=== PATIENT | female | born 1990 | race Caucasian/White ===

== ENCOUNTER 2018-05-04 13:58 | Observation (INO) ==
--- NOTE | 2018-05-04 14:34 | Emergency Department Note ---
Disposition Clinical Impression: Small bowel obstruction Abdominal pain Qualifiers: Abdominal location: epigastric Qualified Code(s): R10.13 - Epigastric pain Disposition: Admitted As Inpatient Condition: Undetermined Instructions: Abdominal Pain (ED) Referrals: NONE,PCP [Primary Care Provider] - Forms: ED Satisfaction Letter, Work/School Release Time of Disposition: 17:45 (Dr Best Surgeon agreed with our plan and Dr Mullen accepted her ) Abdominal Pain HPI - General Chief Complaint: ED Abdominal Pain Stated Complaint: Abdominal, n/v/d, sore throat, ear pain Source: patient Nursing Notes Reviewed: Yes Vital Signs Reviewed: Yes - History of Present Illness HPI Narrative: Patient is a pleasant 27 yo F with past medical history significant for pancreatitis and HTN who is presenting to [facility] Emergency Room with a chief complaint off acute onset of epigastric pain in the pst few days. Pain has been progressive and she states that she has Hx of pancreatitis. She denies any ETOH ingestion. Patient denies any fever, chills or night sweats. Pt also denies any eye pain or visual disturbances. There is no sore throat, nasal drainages or facial congestion. There is no chest pain, palpitations or racing heart. Pt also denies any shortness of breath, cough or chest congestion. There is no diarrhea. There is no urgency, frequency or dysuria. There is no muskulo-skeletal pain, arthralgia or back pain. Patient also denies any rash, edema or pruritus. There is no neurological manifestations, no headache, no vertigo or weakness. The patient also denies any anxiety, depression, hallucinations and has no homicidal or suicidal ideations. There is no polyuria, polydipsia or recent weight change. There is no easy bruising or bleeding. Review of other systems is otherwise negative except above. Pt Subjective Complaint: abdominal pain Onset (ago): hour(s) Consistency: intermittent Location: periumbilical, epigastric Pain Severity: moderate, severe Pain Scale: 8 Quality: stabbing - Related Data Home Medications Medication Instructions Recorded Confirmed cloNIDine HCl [CloNIDine HCl] 0.1 mg PO TID 05/04/18 05/04/18 Allergies Allergy/AdvReac Type Severity Reaction Status Date / Time Penicillins AdvReac Hives Verified 05/04/18 14:00 All systems ED: reviewed and negative except as stated. Review of Systems: As Per HPI Constitutional: Denies: fever, chills, weakness Eyes: Denies: eye pain, eye discharge ENT ED: Denies: ear pain, throat pain Cardiovascular: Denies: chest pain, palpitations Respiratory: Denies: cough, dyspnea Gastrointestinal: Reports: abdominal pain, nausea, vomiting. Denies: diarrhea Genitourinary: Denies: urgency, dysuria, frequency Musculoskeletal: Denies: back pain, neck pain Abdominal Pain PMH - Past Medical History Medical history: Reports: hypertension, other Female Surgical History: Reports: other Psychiatric history: Reports: anxiety, depression - Social History Smoking status: Current every day smoker Alcohol use: Reports: none Drug use: Reports: marijuana Physical Exam - General Limitations: no limitations General appearance: alert, in no apparent distress - Head Head exam: atraumatic, normocephalic, normal inspection - Eye Eye exam: Present: normal appearance, PERRL, EOMI - Expanded Eye Exam Pupils: Left: reactive - ENT ENT exam: normal exam, normal oropharynx, mucous membranes moist - Expanded ENT Exam External ear exam: Present: normal external inspection Mouth exam: Present: normal external inspection Teeth exam: Present: normal inspection Throat exam: Present: normal inspection - Neck Neck exam: Present: normal inspection, full ROM, trachea midline - Chest Chest inspection: Present: normal inspection, symmetric chest wall rise - Respiratory Respiratory exam: Present: normal lung sounds bilaterally - Cardiovascular Cardiovascular exam: Present: regular rate, normal rhythm, normal heart sounds - Abdominal Exam Abdominal exam: Present: soft, tenderness, normal bowel sounds. Absent: Non- Tender, distention, guarding, rebound, rigidity - Extremities Exam Extremities exam: Present: normal inspection, full ROM. Absent: tenderness, pedal edema - Expanded Upper Extremity Exam Shoulder exam: Present: normal inspection, full ROM Arm exam: Present: normal inspection, full ROM Elbow exam: Present: normal inspection, full ROM Forearm/Wrist exam: Present: normal inspection, full ROM Hand exam: Present: normal inspection, full ROM Vascular exam: Normal: capillary refill, radial pulse - Expanded Lower Extremity Exam Hip/Pelvis exam: Present: normal inspection, full ROM Upper leg exam: Present: normal inspection, full ROM Knee exam: Present: normal inspection, full ROM Lower leg exam: Present: normal inspection, full ROM Ankle exam: Present: normal inspection, full ROM Foot/toe exam: Present: normal inspection, full ROM Neurovascular/Tendon exam: Absent: motor deficit, sensory deficit, tendon deficit - Back Exam Back exam: Present: normal inspection, full ROM. Absent: tenderness - Neurological Exam Neurological exam: Present: alert, oriented X3 - Expanded Neurological Exam Patient oriented to: Present: person, place, time Coma Scale Eye Opening: Spontaneous Coma Scale Motor Response: Obeys Commands Coma Scale Verbal Response: Oriented Coma Scale Total: 15 - Psychiatric Psychiatric exam: Present: normal affect, normal mood - Skin Skin exam: Present: warm, dry, intact, normal color Course Vital Signs Temperature 97.6 F 05/04/18 14:01 Pulse Rate 83 05/04/18 14:01 Respiratory Rate 16 05/04/18 14:01 Blood Pressure 115/74 05/04/18 14:01 O2 Sat by Pulse Oximetry 97 05/04/18 14:01 Temperature 97.6 F 05/04/18 14:01 Pulse Rate 78 05/04/18 17:02 Respiratory Rate 16 05/04/18 17:02 Blood Pressure 108/62 05/04/18 17:02 O2 Sat by Pulse Oximetry 98 05/04/18 17:02 Oxygen Delivery Oxygen Delivery Room Air Abdominal Pain - MDM Narrative Medical decision making narrative: DC with Dr Best Surgeon and he advised to rest her bowel NPP, IV hydration and he is available should we need him over the weekend. Dr Mullen accepted the pt - Differential Diagnosis Differential Diagnosis: Likely: abdominal pain non-specific, acute appendicitis , constipation, diverticulitis, diverticulosis, pancreatitis - Medical Records Medical records reviewed: Yes I reviewed the patient's medical records. - Lab Data Lab results reviewed: Yes I reviewed the patient's lab results. Result diagrams: 05/04/18 16:20 05/04/18 15:45 Lab Results 05/04/18 05/04/18 05/04/18 Range/Units 15:45 15:45 16:20 WBC 6.1 (4.3-11.1) K/mcL RBC 4.43 (3.82-4.97) M/mcL Hgb 12.5 (11.5-15.4) g/dL Hct 38.5 (35.3-44.9) % MCV 86.9 (83.0-100.0) fL MCH 28.2 (28.0-33.3) pg MCHC 32.5 (31.6-35.5) g/dL RDW 14.7 H (11.5-14.5) % Plt Count 298 (140-400) K/mcL MPV 10.6 (9.4-12.4) fL Seg Neutrophils % 54.0 % Lymphocytes % 34.0 % Monocytes % 4.0 % Eosinophils % 2.0 % Basophils % 6.0 % Neutrophils # 3.3 (1.6-8.9) K/mcL Lymphocytes # 2.1 (0.6-4.6) K/mcL Monocytes # 0.2 (0.0-1.3) K/mcL Eosinophils # 0.1 (0.0-0.6) K/mcL Basophils # 0.4 H (0.0-0.2) K/mcL Toxic Granulation Present A (Not Present) Toxic Vacuolation Present A (Not Present) Platelet Estimate Normal (Normal) Clumped Platelets Few A (Not Present) Anisocytosis 1+ A (Not Present) Sodium 134 L (136-145) mEq/L Potassium 4.8 (3.5-5.1) mEq/L Chloride 103 (98-107) mEq/L Carbon Dioxide 23 (23-29) mEq/L BUN 11 (6-20) mg/dL Creatinine 0.73 (0.60-1.20) mg/dL Est GFR ( Amer) > 60 (> 60) Est GFR (Non-Af Amer) > 60 (> 60) BUN/Creatinine Ratio 15 (6-26) Glucose 118 H (70-105) mg/dL Calculated Osmolality 278 L (280-300) Calcium 8.9 (8.6-10.3) mg/dL Amylase 29 (29-103) Units/L Lipase 47 (11-82) Units/L Serum , Qual (Negative) 05/04/18 Range/Units 16:20 WBC (4.3-11.1) K/mcL RBC (3.82-4.97) M/mcL Hgb (11.5-15.4) g/dL Hct (35.3-44.9) % MCV (83.0-100.0) fL MCH (28.0-33.3) pg MCHC (31.6-35.5) g/dL RDW (11.5-14.5) % Plt Count (140-400) K/mcL MPV (9.4-12.4) fL Seg Neutrophils % % Lymphocytes % % Monocytes % % Eosinophils % % Basophils % % Neutrophils # (1.6-8.9) K/mcL Lymphocytes # (0.6-4.6) K/mcL Monocytes # (0.0-1.3) K/mcL Eosinophils # (0.0-0.6) K/mcL Basophils # (0.0-0.2) K/mcL Toxic Granulation (Not Present) Toxic Vacuolation (Not Present) Platelet Estimate (Normal) Clumped Platelets (Not Present) Anisocytosis (Not Present) Sodium (136-145) mEq/L Potassium (3.5-5.1) mEq/L Chloride (98-107) mEq/L Carbon Dioxide (23-29) mEq/L BUN (6-20) mg/dL Creatinine (0.60-1.20) mg/dL Est GFR ( Amer) (> 60) Est GFR (Non-Af Amer) (> 60) BUN/Creatinine Ratio (6-26) Glucose (70-105) mg/dL Calculated Osmolality (280-300) Calcium (8.6-10.3) mg/dL Amylase (29-103) Units/L Lipase (11-82) Units/L Serum , Qual Negative (Negative) - Radiology Data Radiology results reviewed: Yes I reviewed the patient's radiology results.
[2018-05-04] MEDS ORDERED: 0.9 % Sodium Chloride 1,000 ML IVC ONE (14:40)
[2018-05-04] MEDS ORDERED: Ondansetron 4 MG/2 ML VIAL IVP ONE (14:42)
[2018-05-04] MEDS ORDERED: Ondansetron ODT 4 MG TAB.RAPDIS SL ONE (15:26)
[2018-05-04 16:08] LABS: Amylase 29 Units/L (29-103); Lipase 47 Units/L (11-82)
[2018-05-04 16:10] LABS: BUN/Creatinine Ratio 15 (6-26); Blood Urea Nitrogen 11 mg/dL (6-20); Calcium 8.9 mg/dL (8.6-10.3); Carbon Dioxide 23 mEq/L (23-29); Chloride 103 mEq/L (98-107); Glucose 118 mg/dL (70-105); Osmolality,Calculated 278 (280-300); Potassium 4.8 mEq/L (3.5-5.1); Sodium 134 mEq/L (136-145); eGFR For Non-African Americans > 60 (> 60)
[2018-05-04 16:26] LABS: Eosinophils # 0.1 K/mcL (0.0-0.6); Hematocrit 38.5 % (35.3-44.9); Hemoglobin 12.5 g/dL (11.5-15.4); Mean Corpuscular HGB Conc 32.5 g/dL (31.6-35.5); Mean Corpuscular Hemoglobin 28.2 pg (28.0-33.3); Mean Corpuscular Volume 86.9 fL (83.0-100.0); Mean Platelet Volume 10.6 fL (9.4-12.4); Platelet Count 298 K/mcL (140-400); Red Blood Count 4.43 M/mcL (3.82-4.97); Red Cell Distribution Width 14.7 % (11.5-14.5)
[2018-05-04 16:56] LABS: Anisocytosis 1+ (Not Present); Basophils # 0.4 K/mcL (0.0-0.2); Lymphocytes # 2.1 K/mcL (0.6-4.6); Monocytes # 0.2 K/mcL (0.0-1.3); Neutrophils # 3.3 K/mcL (1.6-8.9); Platelet Clumps Few (Not Present); Platelet Estimate Normal (Normal); Toxic Granulation Present (Not Present); Toxic Vacuolation Present (Not Present)
[2018-05-04] MEDS ORDERED: MetroNIDAZOLE 500 MG/100 ML 500 MG/100 ML BAG IVPB ONE (17:51)
[2018-05-04] MEDS ORDERED: Naloxone 0.4 MG/ML INJ IVP PRN ×2 (18:03→19:00)
[2018-05-04] MEDS ORDERED: 0.9 % Sodium Chloride 1,000 ML IVC SCH (18:15)
[2018-05-04] MEDS ORDERED: *HR* HYDROmorphone 2 MG/ML SYRINGE IVP PRN (19:42)
[2018-05-04] MEDS: 0.9 % Sodium Chloride 1,000 ML IVC SCH (19:58)
[2018-05-04] MEDS: cloNIDine HCl 0.1 MG TABLET PO SCH (20:55)
[2018-05-04] MEDS ORDERED: *HR* Promethazine 25 MG/ML VIAL IV PRN (21:12)
[2018-05-04] MEDS: Ondansetron 4 MG/2 ML VIAL IVP PRN (22:13)
[2018-05-05] MEDS: Ondansetron 4 MG/2 ML VIAL IVP PRN ×2 (02:29→07:55)
[2018-05-05] MEDS: Ketorolac 30 MG/ML VIAL IVP PRN (02:52)
[2018-05-05] MEDS: 0.9 % Sodium Chloride 1,000 ML IVC SCH ×4 (04:07→16:16)
[2018-05-05] MEDS: cloNIDine HCl 0.1 MG TABLET PO SCH ×3 (09:39→20:55)
[2018-05-05] MEDS: *HR* HYDROcodone/Acet 5/325 mg TABLET PO PRN ×3 (13:38→23:22)
--- NOTE | 2018-05-05 14:40 | Internal Med History&Physical ---
Date of Encounter: 05/05/18 Time of Encounter: 14:10 Assessment and Plan (1) Abdominal pain Current visit: Yes Status: Acute Suspect gastroenteritis and/or hepatitis. Continue IV fluids, analgesics, and anti-emetics. Qualifiers: Abdominal location: epigastric Qualified Code(s): R10.13 - Epigastric pain (2) COPD (chronic obstructive pulmonary disease) Current visit: Yes Status: Chronic By history. PFTs have not been performed to verify. Qualifiers: COPD type: unspecified COPD Qualified Code(s): J44.9 - Chronic obstructive pulmonary disease, unspecified (3) Lupus Current visit: Yes Status: Chronic By history. Possible clinical features include facial papules and possible hepatitis. Will order LFTs and serology. Qualifiers: Lupus erythematosus form: unspecified Qualified Code(s): L93.0 - Discoid lupus erythematosus (4) Hepatitis C Current visit: Yes Status: Chronic Order hepatitis profile to further evaluate. Qualifiers: Viral hepatitis chronicity: chronic Hepatic coma status: without hepatic coma Qualified Code(s): B18.2 - Chronic viral hepatitis C (5) Weight loss Current visit: Yes Status: Chronic Check TSH (6) Hypertension Current visit: Yes Status: Chronic Blood pressure acceptable at this time off medication. Reported weight loss perhaps contributed to improvement. Continue to monitor. Qualifiers: Hypertension type: essential hypertension Qualified Code(s): I10 - Essential (primary) hypertension Internal Medicine - H&P: HPI Chief complaint: Vomiting Admitted From: Emergency Dept Plans for Post Hospital Care: Home History of present illness: Ms. Cedeno is a 27 year old female who came to emergency room stating she had vomited over 20 times since onset the evening of April 29. She had mid abdominal discomfort that seemed radiate to her back. She did not note hematemesis. She had occasional feelings of feeling warm or chilling. She denies diarrhea. She felt she was having another episode of acute pancreatitis so came to emergency room. Workup showed no evidence of pancreatitis but the CT scan showed fluid filled distended small bowel loops. She was admitted to [facility] floor for ongoing care needs. She reports she has had "14 episodes" of acute pancreatitis. 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 She denies alcohol use. 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 She has a diagnoses of hepatitis C but has not been treated. She states she was exposed to an individual with active hepatitis A within the past few months but reports she has received vaccines for hepatitis A and hepatitis B. She denies other disorders of her liver gallbladder or exocrine pancreas. Past Med Surg Social Fam HX - Past Medical History Medical history: hypertension, other Additional medical history: Pancreatitis Psychiatric history: anxiety, depression - Past Surgical History Additional surgical history: Carpel tunnel - Social History Smoking Status: Current every day smoker Packs per day: 1 Smokeless Tobacco Status: No Alcohol use: none Drug use: marijuana - Family History Mother Living Status: Hx Family Respiratory Disorders: Yes (Lung cancer) Internal Medicine - H&P: Meds cloNIDine HCl [CloNIDine HCl] 0.1 mg PO TID 05/04/18 [History] 3 Allergy/AdvReac Type Severity Reaction Status Date / Time Penicillins AdvReac Hives Verified 05/04/18 14:00 All Systems PM: A 10-system review of systems was performed and is negative for pertinent findings except as documented above in the HPI. Review of systems: Gen.: She states her weight has decreased from approximately 180 pounds to present weight of approximately 120 pounds in the past year, unintentionally. Cardiovascular: She has history of hypertension but denies NE heart failure angina DVT or pulmonary embolus. She has been prescribed clonidine in the past but states she has not taken it for several months and has not seen her PCP in approximately 6 months. Respiratory: She has smoked since age 10 up to 2 packs per day. She states she has been told she has COPD but has not had PFTs. She does not use home oxygen. GI: As per history of present illness : She has history of frequent urinary tract infections. She denies other kidney or bladder disorders. Neurologic: She reports having a stroke at age 16 leaving her with slight left- sided facial weakness. She denies recurrent strokes or seizures. Endocrine: She was told she had "thyroid disease" several years ago but does not remember details. She states she received a treatment "pill" but only took it for one week and then discontinued it. She denies diabetes or hyperlipidemia. Hematology/oncology: She reports history of anemia but denies internal malignancies or other blood disorders. Psychiatric: She has bipolar disorder and ADHD. Musko skeletal: She reports she was diagnosed with "lupus" several years ago but does not remember any details. She denies other bone joint or muscle disorders. - Constitutional Vitals: Temp Pulse Resp BP Pulse Ox 98.3 F 72 17 120/83 96 05/05/18 14:00 05/05/18 14:00 05/05/18 14:00 05/05/18 14:00 05/05/18 14:00 Exam: Gen.: She is a well-developed well-nourished female lying in bed who appears in no acute distress. HEENT: Head is atraumatic and normal cephalic. Eyes: EOMI. She has questionable faint scleral icterus bilaterally. Mouth: Mucosa is moist. Neck: Supple and nontender. There is no thyromegaly or adenopathy noted. Heart: Regular without murmurs gallops or ectopics Lungs: No wheezes or crackles are heard. Abdomen: Bowel sounds are present but are not high-pitched. There is mild tenderness to light palpation of the abdomen diffusely. No masses or guarding are noted. Extremities: There is no cyanosis edema or clubbing noted. Dorsalis pedis and posttibial pulses are 1-2 over 2 bilaterally. Neurologic: Mental status: She is talkative and a good historian. Cranial nerves: Smile is symmetric. Forehead wrinkles bilaterally. Tongue protrudes midline. EOMI. Motor: There is no pronator drift. Cerebellar: Finger to nose is intact bilaterally. Skin: Warm and dry. She has multiple tattoos. She has acne of her face. Internal Med - H&P Results - Labs CBC & Chem 7: 05/04/18 16:20 05/04/18 15:45 - VTE Reasons for not Prescribing Prophylaxis: Treatment not Indicated - Low risk for VTE
[2018-05-05 18:51] LABS: Bilirubin,Urine Moderate (Negative); Blood,Urine Negative (Negative); Clarity,Urine Slightly Cloudy (Clear); Color,Urine Yellow (Yellow); Glucose,Urine (UA) Normal (Normal); Ketones,Urine Negative (Negative); Leukocyte Esterase,Urine Negative (Negative); Nitrite,Urine Negative (Negative); Protein,Urine Negative (Neg-Trace); Urobilinogen,Urine Normal (Normal)
[2018-05-05 19:00] LABS: Amphetamine Screen,Urine Positive ng/mL (Cutoff=1000); Bacteria,Urine Moderate per hpf (None-Few); Barbiturate Screen,Urine Negative ng/mL (Cutoff=200); Benzodiazepines Screen,Urine Negative ng/mL (Cutoff=200); Cannabinoid Screen,Urine Positive ng/mL (Cutoff = 50); Cocaine Screen,Urine Negative ng/mL (Cutoff= 300); Opiate Screen,Urine Positive ng/mL (Cutoff=300); Phencyclidine Screen,Urine Negative ng/mL (Cutoff=25); RBC,Urine 0-3 per hpf (0-3); Squamous Epithelial Cell,Urine Many per lpf (None-Few)
[2018-05-05 21:04] LABS: Phosphorous 2.6 mg/dL (2.7-4.5)
[2018-05-05 21:26] LABS: Thyroid Stimulating Hormone 0.635 mcIU/mL (0.340-5.600)
[2018-05-05 21:30] LABS: Alanine Aminotransferase > 500 Units/L (7-52); Albumin/Globulin Ratio 0.9 (1.1-2.2); Alkaline Phosphatase 221 Units/L (34-104); Aspartate Amino Transferase 750 Units/L (13-39); Bilirubin,Direct 4.7 mg/dL (0.0-0.2); Bilirubin,Indirect 1.8 mg/dL (0.0-1.2); Bilirubin,Total 6.5 mg/dL (0.3-1.0); Globulin 3.4 g/dL (2.4-3.5); Total Protein 6.4 g/dL (6.4-8.9)
[2018-05-06] MEDS: Ketorolac 30 MG/ML VIAL IVP PRN (01:04)
[2018-05-06] MEDS ORDERED: Ondansetron 4 MG/2 ML VIAL IVP PRN (01:15)
[2018-05-06] MEDS: 0.9 % Sodium Chloride 1,000 ML IVC SCH (01:27)
[2018-05-06] MEDS: *HR* HYDROcodone/Acet 5/325 mg TABLET PO PRN ×3 (05:30→14:23)
[2018-05-06 07:47] LABS: Basophils # 0.1 K/mcL (0.0-0.2); Basophils % 0.8 %; Eosinophils # 0.1 K/mcL (0.0-0.6); Eosinophils % 1.6 %; Hematocrit 39.2 % (35.3-44.9); Immature Granulocytes % 0.2 % (0-4); Lymphocytes # 2.2 K/mcL (0.6-4.6); Lymphocytes % 35.4 %; Mean Corpuscular HGB Conc 33.2 g/dL (31.6-35.5); Mean Corpuscular Hemoglobin 28.3 pg (28.0-33.3); Mean Corpuscular Volume 85.4 fL (83.0-100.0); Mean Platelet Volume 12.6 fL (9.4-12.4); Monocytes # 0.6 K/mcL (0.0-1.3); Monocytes % 9.9 %; Neutrophils # 3.2 K/mcL (1.6-8.9); Platelet Count 274 K/mcL (140-400); Red Blood Count 4.59 M/mcL (3.82-4.97); Segmented Neutrophils % 52.1 %
[2018-05-06 08:06] LABS: Anisocytosis 1+ (Not Present); Toxic Granulation Present (Not Present); Toxic Vacuolation Present (Not Present)
[2018-05-06 08:07] LABS: Platelet Estimate Normal (Normal)
[2018-05-06 10:07] VITALS: BP 118/81
[2018-05-06] MEDS: cloNIDine HCl 0.1 MG TABLET PO SCH ×2 (10:07→16:38)
[2018-05-06 13:46] LABS: Alanine Aminotransferase > 500 Units/L (7-52); Albumin 3.3 g/dL (3.5-5.7); Albumin/Globulin Ratio 0.9 (1.1-2.2); Alkaline Phosphatase 236 Units/L (34-104); Aspartate Amino Transferase 814 Units/L (13-39); BUN/Creatinine Ratio 10 (6-26); Bilirubin,Total 7.1 mg/dL (0.3-1.0); Blood Urea Nitrogen 7 mg/dL (6-20); Calcium 8.8 mg/dL (8.6-10.3); Carbon Dioxide 25 mEq/L (23-29); Chloride 108 mEq/L (98-107); Globulin 3.6 g/dL (2.4-3.5); Glucose 92 mg/dL (70-105); Osmolality,Calculated 294 (280-300); Potassium 3.7 mEq/L (3.5-5.1); Sodium 143 mEq/L (136-145); Total Protein 6.9 g/dL (6.4-8.9); eGFR For Non-African Americans > 60 (> 60)
--- NOTE | 2018-05-06 14:18 | Internal Med Progress Note ---
Date of Encounter: 05/06/18 Time of Encounter: 14:10 - Assessment and plan (1) Abdominal pain Current Visit: Yes Status: Acute Assessment and plan: May 06. Lab work indicating likely acute hepatitis. Hepatitis profile is pending. Continue supportive measures. Qualifiers: Abdominal location: epigastric Qualified Code(s): R10.13 - Epigastric pain (2) COPD (chronic obstructive pulmonary disease) Current Visit: Yes Status: Chronic Assessment and plan: May 06. By history. PFTs have not been performed to verify. Qualifiers: COPD type: unspecified COPD Qualified Code(s): J44.9 - Chronic obstructive pulmonary disease, unspecified (3) Lupus Current Visit: Yes Status: Chronic Assessment and plan: May 06. By history. Lab work pending. Qualifiers: Lupus erythematosus form: unspecified Qualified Code(s): L93.0 - Discoid lupus erythematosus (4) Hepatitis C Current Visit: Yes Status: Chronic Assessment and plan: May 06. By history. Hepatitis profile pending Qualifiers: Viral hepatitis chronicity: chronic Hepatic coma status: without hepatic coma Qualified Code(s): B18.2 - Chronic viral hepatitis C (5) Weight loss Current Visit: Yes Status: Chronic Assessment and plan: May 06. TSH normal at 0.635. (6) Hypertension Current Visit: Yes Status: Chronic Assessment and plan: May 06. Blood pressures acceptable off medication. Continue to observe. Qualifiers: Hypertension type: essential hypertension Qualified Code(s): I10 - Essential (primary) hypertension - Subjective Interval history: May 06. She has no new complaints. She states she has not vomited since I saw her yesterday. - Constitutional Vitals: Temp Pulse Resp BP Pulse Ox 98.2 F 74 14 118/81 100 05/06/18 10:03 05/06/18 10:03 05/06/18 10:03 05/06/18 10:03 05/06/18 10:03 Exam: She is lying in bed and appears in mild discomfort. She is able to converse without difficulty and gives appropriate answers. I reviewed her medications and pertinent lab results with her. Internal Medicine: Result - Labs CBC & Chem 7: 05/06/18 07:44 05/06/18 07:41 Labs: Short CBC 05/06/18 Range/Units 07:44 WBC 6.2 (4.3-11.1) K/mcL Hgb 13.0 (11.5-15.4) g/dL Hct 39.2 (35.3-44.9) % Plt Count 274 (140-400) K/mcL Neutrophils # 3.2 (1.6-8.9) K/mcL BMP 05/06/18 07:41 Sodium 143 Potassium 3.7 Chloride 108 H Carbon Dioxide 25 BUN 7 Creatinine 0.73 Glucose 92 Calcium 8.8 Liver Function 05/05/18 05/06/18 Range/Units 20:25 07:41 Total Bilirubin 6.5 H 7.1 H (0.3-1.0) mg/dL Direct Bilirubin 4.7 H (0.0-0.2) mg/dL AST 750 H 814 H (13-39) Units/L ALT > 500 H > 500 H (7-52) Units/L Alkaline Phosphatase 221 H 236 H (34-104) Units/L Albumin 3.0 L 3.3 L (3.5-5.7) g/dL Urine 05/05/18 Range/Units 18:20 Urine Color Yellow (Yellow) Urine Clarity Slightly Cloudy A (Clear) Urine pH 7.0 (5.0-8.0) pH Units Ur Specific [place] 1.010 (1.010-1.025) Urine Protein Negative (Neg-Trace) mg/dL Urine Glucose (UA) Normal (Normal) mg/dL - VTE Reasons for not Prescribing Prophylaxis: Treatment not Indicated - Low risk for VTE Consult Discharge Plan - Plan Referrals: NONE,PCP [Primary Care Provider] - 1 week
--- NOTE | 2018-05-08 12:31 | Discharge Summary ---
Orders not resulted at time of discharge: Pending orders 05/05/18 20:25 JAYDON IgG MARTIN rflx IFA Routine Date of Encounter: 05/08/18 Time of Encounter: 12:20 - Discharge Diagnosis (1) Hepatitis A Priority: Primary Status: Acute Qualifiers: Hepatic coma status: without hepatic coma (2) Hepatitis C Priority: Secondary Status: Chronic Qualifiers: Viral hepatitis chronicity: chronic Hepatic coma status: without hepatic coma Qualified Code(s): B18.2 - Chronic viral hepatitis C (3) Abdominal pain Priority: Secondary Status: Acute Qualifiers: Abdominal location: unspecified location Qualified Code(s): R10.9 - Unspecified abdominal pain (4) COPD (chronic obstructive pulmonary disease) Priority: Secondary Status: Chronic Qualifiers: COPD type: unspecified COPD Qualified Code(s): J44.9 - Chronic obstructive pulmonary disease, unspecified (5) Lupus Priority: Secondary Status: Chronic Qualifiers: Lupus erythematosus form: unspecified Qualified Code(s): L93.0 - Discoid lupus erythematosus (6) Weight loss Priority: Secondary Status: Chronic (7) Hypertension Priority: Secondary Status: Chronic Qualifiers: Hypertension type: essential hypertension Qualified Code(s): I10 - Essential (primary) hypertension Hospital course: Ms. Cedeno is a 28 year old female who came to emergency room stating she had vomited over 20 times since onset the evening of April 29. She had mid abdominal discomfort that seemed radiate to her back. She did not note hematemesis. She had occasional feelings of feeling warm or chilling. She denies diarrhea. She felt she was having another episode of acute pancreatitis so came to emergency room. Workup showed no evidence of pancreatitis but the CT scan showed fluid filled distended small bowel loops. She was admitted to [facility] floor for ongoing care needs. Initial orders were written by the emergency room physician. I saw her the afternoon of May 05 and performed a history and physical. LFTs were ordered since they were not done in emergency room. She had significant elevation of transaminase levels with slight elevation of alkaline phosphatase. Viral hepatitis profile was ordered. She was given IV Toradol and oral narcotics since I was told IV narcotics were not available. She complained of ongoing abdominal pain but resolution of vomiting when I saw her the morning of May 06. She asked for a food tray which was ordered. The afternoon of May 06 she complained to nursing staff she did not feel like she was being treated adequately for pain and signed out AMA. Hepatitis profile returned later that day showing positive hepatitis A IgM and hepatitis C antibody. JAYDON was ordered to further evaluate patient's claim of lupus with results pending at time of this dictation. - Time Spent with Patient Total time spent providing and/or coordinating discharge services: - Discharge Medications Home Medications: No Known Home Drugs 05/07/18 [History] Allergies/Adverse Reactions: 3 Allergy/AdvReac Type Severity Reaction Status Date / Time Penicillins AdvReac Hives Verified 05/04/18 14:00 Date of admission: 05/04/18 18:10 Primary care physician: PCP NONE - Constitutional Vitals: Temp Pulse Resp BP Pulse Ox 98.2 F 74 14 118/81 100 05/06/18 10:03 05/06/18 10:03 05/06/18 10:03 05/06/18 10:03 05/06/18 10:03 - Patient Status Disposition: Left Against Medical Advice Condition: Undetermined - Discharge Instructions Follow Up With: NONE,PCP [Primary Care Provider] - 1 week (Left AMA) - VTE Reasons for not Prescribing Prophylaxis: Treatment not Indicated - Low risk for VTE
[2018-05-09 09:54] LABS: ANA IgG by ELISA NONE DETECTED (None Detected)
== END 2018-05-06 18:18 | disposition left against medical advice (07) ==
LOC: EMEROOPIK 13:58 → INPPIK 13:58
PROVIDERS: ADMIT Internal Medicine; ATTEND Internal Medicine